=== PATIENT | female | born 1985 | race Caucasian/White ===

== ENCOUNTER 2025-03-19 06:05 | Day surgery (SDC) | payer OTHER, SELFPAY ==
[2025-03-19 13:32] VITALS: BMI 49.5
[2025-03-19 13:33] VITALS: BP 140/88; BMI 49.5
[2025-03-19 15:45] VITALS: BP 93/77
[2025-03-19 16:00] VITALS: BP 107/72
== END 2025-03-19 16:25 | disposition home or self-care (01) ==
LOC: SDS 06:05
PROVIDERS: ATTENDING PHYSICIAN Internal Medicine
DX: Z12.11 Encounter for screening for malignant neoplasm of colon (principal); Z80.0 Family history of malignant neoplasm of digestive organs; D12.2 Benign neoplasm of ascending colon; D12.3 Benign neoplasm of transverse colon; D12.4 Benign neoplasm of descending colon; K62.1 Rectal polyp; K63.5 Polyp of colon
CPT/HCPCS: 45385; 45380; 88305